=== PATIENT | female | born 1965 | race Caucasian/White ===

== ENCOUNTER → 2020-10-10 | Day surgery (SDC) | payer MEDICARE, OTHER ==
[~2020-10-10] VITALS: Ht 167.6 cm; Wt 104.3 kg
[~2020-10-10] MED LIST: ALBUTEROL2.5 MG/3 M INH; CYCLOBENZAPRINE10 MG PO; ECOTRIN81 MG PO; ESTRADIOL0.5 MG PO; FAMOTIDINE20 MG PO; FEOSOL325 MG PO; FEROSUL325 MG PO; FLUOXETINE HCL40 MG PO; FUROSEMIDE20 MG PO; GABAPENTIN800 MG PO; HYDROCODON-ACE1 EAC2 PO; IPRATROPIU0.2 MG/1 M INH; KEPPRA750 MG PO; LEVETIRACETAM750 MG PO; LOPRESSOR 50 MG50 MG PO; LOPRESSOR50 MG PO; MELATONIN5 M2 PO; MELATONIN5 MG PO; MIRTAZAPINE30 MG PO; NEURONTIN600 MG PO; POTASSIUM CHLO10 MEQ PO; POTASSIUM CHLO20 ME1 PO; PREDNISONE10 M1 PO; STOOL SOFTENER100 M1 PO; SYMBICORT 16010.2 GM INH; TRELEGY ELLIPT1 EACH INH; VITAMIN D PO; VITAMIN D3125 MCG PO
== END | disposition home or self-care (01) ==
LOC: OR 06:19
DX: S92.251K Displaced fracture of navicular [scaphoid] of right foot, subsequent encounter for fracture with nonunion (principal); J44.9 Chronic obstructive pulmonary disease, unspecified; K21.9 Gastro-esophageal reflux disease without esophagitis; I10 Essential (primary) hypertension; M19.90 Unspecified osteoarthritis, unspecified site; F32.9 Major depressive disorder, single episode, unspecified; F41.0 Panic disorder [episodic paroxysmal anxiety]; F17.210 Nicotine dependence, cigarettes, uncomplicated; G47.30 Sleep apnea, unspecified; E66.01 Morbid (severe) obesity due to excess calories; Z68.38 Body mass index [BMI] 38.0-38.9, adult; Z88.5 Allergy status to narcotic agent; Z91.038 Other insect allergy status; Z79.82 Long term (current) use of aspirin; Z79.899 Other long term (current) drug therapy; X58.XXXD Exposure to other specified factors, subsequent encounter
CPT/HCPCS: J0690; J1885; J2001; J2250; J2405; J2704; J2795; J3010; J3370; J7120

== ENCOUNTER → 2020-11-10 | Outpatient (CLI) | payer MEDICARE, OTHER | LOC: KOH-I 13:40 | DX: S92.251A Displaced fracture of navicular [scaphoid] of right foot, initial encounter for closed fracture (principal); M19.071 Primary osteoarthritis, right ankle and foot | CPT/HCPCS: 73630 ==

== ENCOUNTER → 2020-12-16 | Outpatient (CLI) | payer MEDICARE, OTHER | LOC: KOH-I 14:54 | DX: S92.251A Displaced fracture of navicular [scaphoid] of right foot, initial encounter for closed fracture (principal) | CPT/HCPCS: 73630 ==